=== PATIENT | female | born 1965 | race Caucasian/White ===

== ENCOUNTER 2020-11-08 12:17 | Day surgery (SDC) | payer OTHER ==
[2020-11-08] MEDS ORDERED: BUPIVACAINE 0.5% VIAL IJ ONE (12:18)
[2020-11-08] MEDS ORDERED: Depo-Medrol 40 MG/ML IM ONE (12:18)
[2020-11-08] MEDS ORDERED: DIPRIVAN 200 MG/20 ML IV ONE ×2 (13:26→13:36)
[2020-11-08] MEDS ORDERED: Lactated Ringers 1,000 ML IV ONE (15:57)
--- NOTE | 2020-11-09 11:53 | XRAY ---
9 seconds of fluoroscopy was used in surgery for a right intra-articular shoulder injection.
--- NOTE | 2020-11-09 12:03 | XRAY ---
32 seconds of fluoroscopy was used in surgery for bilateral hip injections.
--- NOTE | 2020-11-12 00:24 | XRAY ---
Indication: Right intra-articular shoulder injection. Intraoperative fluoroscopy was provided for 9 seconds. A single digital spot image submitted for interpretation demonstrates a single needle tip projected over the superior right humeral head. Some contrast has been injected for needle placement. It appears there is some contrast in the right shoulder joint as well as some contrast within the subacromial bursa. Correlate clinically. Correlate with intraoperative findings/report.
--- NOTE | 2020-11-12 00:27 | XRAY ---
Indication: Bilateral intra-articular hip joint injections. Intraoperative fluoroscopy was provided for 17 seconds. A single digital AP spot image of each hip submitted for interpretation demonstrates a single needle tip at the lateral margin of the base of the right femoral head and at the lateral margin of the base of the left femoral head. Some contrast has been injected for needle tip placement. Correlate with intraoperative findings/report.
== END 2020-11-08 14:03 | disposition home or self-care (01) ==
LOC: SDC-PAIN 12:17
PROVIDERS: ATTEND Psychiatry & Neurology Pain Medicine
DX: M19.011 Primary osteoarthritis, right shoulder (principal); M16.0 Bilateral primary osteoarthritis of hip; Z79.899 Other long term (current) drug therapy
CPT/HCPCS: 20610; 73030; 73521; 76942; 77002; J1030; J2704; Q9966

== ENCOUNTER 2021-01-24 09:45 | Day surgery (SDC) | payer OTHER ==
[2021-01-24] MEDS ORDERED: BUPIVACAINE 0.5% VIAL IJ ONE (09:46)
[2021-01-24] MEDS ORDERED: Decadron 4 MG INJ IV ONE (09:46)
[2021-01-24] MEDS ORDERED: DIPRIVAN 200 MG/20 ML IV ONE (11:30)
--- NOTE | 2021-01-24 13:21 | XRAY ---
Indication: GANGLION IMPAR. Intraoperative fluoroscopy provided for 21 seconds. Single lateral digital spot image submitted for interpretation demonstrates posterior needle tip projecting just anterior to sacrococcygeal junction. Small amount of contrast injected for needle tip placement. Correlate with intraoperative findings/report.
--- NOTE | 2021-01-24 13:23 | XRAY ---
21 seconds of fluoroscopy was used in surgery for a ganglion impar.
[2021-01-24] MEDS ORDERED: Lactated Ringers 1,000 ML IV ONE (16:27)
== END 2021-01-24 12:00 | disposition home or self-care (01) ==
LOC: SDC-PAIN 09:45
PROVIDERS: ATTEND Psychiatry & Neurology Pain Medicine
DX: M53.3 Sacrococcygeal disorders, not elsewhere classified (principal); Z79.899 Other long term (current) drug therapy
CPT/HCPCS: 64520; 72220; 77002; J1100; J2704; Q9966